=== PATIENT | female | born 2000 | race Two or more races ===

== ENCOUNTER 2022-01-14 09:46 | Emergency (ER) | payer OTHER ==
[2022-01-14 10:03] VITALS: BP 136/92; PULSE 89; RESP 18; TEMP 97.9; BMI 19.3
[2022-01-14] MEDS ORDERED: SODIUM CHLORIDE 0.9% 500 ML INFUS.BAG IV ONE (10:20)
[2022-01-14] MEDS ORDERED: ONDANSETRON 4 MG/2 ML VIAL IVPUSH ONE (10:20)
[2022-01-14] MEDS ORDERED: FAMOTIDINE 20 MG/50 ML IVPB 20 MG/50 ML MG IVPB ONE ×2 (10:20→10:32)
[2022-01-14] MEDS ORDERED: ONDANSETRON 4 MG/2 ML VIAL ONE (10:32)
[2022-01-14 11:01] LABS: BASO % 0.5 % (0-2.0); EOS % 0.6 % (0-4.5); HEMOGLOBIN 12.6 GM/dL (10.7-15.3); MCH 24.6 pg (25.7-33.7); MCHC 33.3 g/dl (32.0-36.0); MEAN PLT VOLUME 7.3 fl (7.5-11.1); NEUT % 70.9 % (42.8-82.8); PLATELET COUNT 255 10^3/uL (134-434); RBC 5.13 M/mm3 (3.60-5.2); RDW 16.8 % (11.6-15.6); WHITE BLOOD COUNT 6.7 K/mm3 (4.0-10.0)
[2022-01-14 11:07] LABS: EPI CELLS >36 /uL (0-25.1); HCG,QUALITATIVE URINE Negative; HYALINE CASTS 12 /uL (0-3.1); PH,URINE 7.5 (5.0-8.0); URINE APPEARANCE TURBID; URINE BACTERIA 6403 /uL (0-1359); URINE BILIRUBIN NEGATIVE (NEGATIVE); URINE COLOR YELLOW; URINE GLUCOSE (UA) NEGATIVE (NEGATIVE); URINE KETONE 2+ (NEGATIVE); URINE LEUK ESTERASE 3+ (NEGATIVE); URINE NITRITE NEGATIVE (NEGATIVE); URINE PROTEIN 2+ (NEGATIVE); URINE RBC 423 /uL (0-23.9); URINE WBC 6234 /uL (0-25.8)
[2022-01-14 11:33] LABS: CALCIUM 9.7 mg/dL (8.5-10.1)
[2022-01-14 11:34] LABS: ALBUMIN 4.3 g/dl (3.4-5.0); BLOOD UREA NITROGEN 9.3 mg/dL (7-18)
[2022-01-14 11:37] LABS: CREATININE 0.8 mg/dL (0.55-1.3)
[2022-01-14 11:38] LABS: TOT PROT 8.6 g/dl (6.4-8.2)
== END 2022-01-14 12:34 | disposition home or self-care (01) ==
LOC: JERFT 09:46 → JER 09:46 → JERFT 12:34
PROC: 3E033GC Introduction of Other Therapeutic Substance into Peripheral Vein, Percutaneous Approach (ICD-10-PCS; principal; 2022-01-14)
PROC: 3E033GC Introduction of Other Therapeutic Substance into Peripheral Vein, Percutaneous Approach (ICD-10-PCS; 2022-01-14)
DX: N30.01 Acute cystitis with hematuria (principal); K29.00 Acute gastritis without bleeding
CPT/HCPCS: 36415; 80053; 81003; 83690; 84703; 85025; 87086; 87186; 99284-25

== ENCOUNTER 2022-03-19 16:45 | Emergency (ER) | payer OTHER ==
[2022-03-19 16:57] VITALS: BP 113/66; PULSE 101; RESP 18; TEMP 102.7; BMI 19.3
[2022-03-19] MEDS ORDERED: ACETAMINOPHEN 500 MG TABLET (FP) PO ONE (18:19)
[2022-03-19] MEDS ORDERED: ACETAMINOPHEN 500 MG TABLET (FP) ONE (18:55)
== END 2022-03-19 21:23 | disposition home or self-care (01) ==
LOC: JER 16:45
DX: U07.1 COVID-19 (principal)
CPT/HCPCS: 0241U-QW; 99283-25

== ENCOUNTER 2022-08-10 13:55 | Emergency (ER) | payer OTHER ==
[2022-08-10 14:19] VITALS: BP 114/59; PULSE 81; RESP 18; TEMP 98.4; BMI 17.7
[2022-08-10] MEDS ORDERED: ACETAMINOPHEN 500 MG TABLET (FP) PO ONE (15:50)
[2022-08-10] MEDS ORDERED: ACETAMINOPHEN 500 MG TABLET (FP) ONE (15:50)
== END 2022-08-10 16:01 | disposition home or self-care (01) ==
LOC: JERFT 13:55
DX: M54.50 Low back pain, unspecified (principal); V49.50XA Passenger injured in collision with unspecified motor vehicles in traffic accident, initial encounter
CPT/HCPCS: 99282-25

== ENCOUNTER 2023-02-24 09:51 | Emergency (ER) | payer OTHER ==
[2023-02-24 09:58] VITALS: BP 114/77; PULSE 93; RESP 16; TEMP 99.4; BMI 20.3
[2023-02-24] MEDS ORDERED: ACETAMINOPHEN 500 MG TABLET (FP) PO ONE (10:29)
[2023-02-24] MEDS ORDERED: ACETAMINOPHEN 500 MG TABLET (FP) ONE (11:07)
== END 2023-02-24 11:31 | disposition home or self-care (01) ==
LOC: JERFT 09:51
DX: R09.81 Nasal congestion (principal); M79.10 Myalgia, unspecified site; R09.89 Other specified symptoms and signs involving the circulatory and respiratory systems; J06.9 Acute upper respiratory infection, unspecified; Z20.822 Contact with and (suspected) exposure to COVID-19
CPT/HCPCS: 0241U-QW; 99283-25

== ENCOUNTER 2024-10-04 10:28 | Emergency (ER) | payer OTHER ==
[2024-10-04 11:32] VITALS: BP 115/66; PULSE 88; RESP 18; TEMP 98; BMI 21.1
[2024-10-04] MEDS ORDERED: IBUPROFEN 600 MG TABLET (FP) PO ONE (11:39)
[2024-10-04] MEDS: IBUPROFEN 600 MG TABLET (FP) PO ONE (11:41)
== END 2024-10-04 11:43 | disposition home or self-care (01) ==
LOC: JERFT 10:28
DX: S66.513A Strain of intrinsic muscle, fascia and tendon of left middle finger at wrist and hand level, initial encounter (principal); X50.0XXA Overexertion from strenuous movement or load, initial encounter; Y99.0 Civilian activity done for income or pay
CPT/HCPCS: 73140-TC-LT-FY; 99283-25